=== PATIENT | female | born 1945 | race African-American/Black ===

== ENCOUNTER 2018-05-24 11:47 | Emergency (ER) | payer SELFPAY ==
[~2018-05-24] VITALS: Ht 157.5 cm; Wt 79.4 kg
[2018-05-24 14:44] VITALS: BP 130/57
[2018-05-24] MEDS ORDERED: HYDROcodone-ACET 5/325MG TAB PO ONE (15:00)
== END 2018-05-24 15:15 | disposition home or self-care (01) ==
LOC: ER 11:47
DX: S40.011A Contusion of right shoulder, initial encounter (principal); E78.5 Hyperlipidemia, unspecified; I10 Essential (primary) hypertension; W19.XXXA Unspecified fall, initial encounter; Y93.89 Activity, other specified; Y99.8 Other external cause status; Y92.89 Other specified places as the place of occurrence of the external cause
CPT/HCPCS: 73030

== ENCOUNTER 2018-09-14 21:24 | Emergency (ER) | payer OTHER ==
[~2018-09-14] VITALS: Ht 157.5 cm; Wt 79.5 kg
[2018-09-14 21:55] LABS: Basophils # (auto) 0.1 uL; Basophils % (auto) 0.6 % (0.0-2.0); Eosinophils # (auto) 0.4 uL; Hematocrit 43.8 % (36.0-46.0); Hemoglobin 14.7 g/dL (12.2-16.2); Lymphocytes % (auto) 31.3 % (10.0-50.0); Mean Corpuscular Hemoglobin 31.4 pg (28.0-32.0); Mean Corpuscular Hgb Conc. 33.7 g/dL (32.0-36.0); Mean Corpuscular Volume 93.3 fL (80.0-100.0); Monocytes # (auto) 0.6 uL; Monocytes % (auto) 5.8 % (0.0-12.0); Neutrophils # (auto) 5.5 uL; Neutrophils % (auto) 58.3 % (37.0-80.0); Nucleated Red Blood Cells % 0.1 %; Platelet Count (auto) 270 10^3/uL (140-450); Red Cell Distribution Width 14.7 % (11.8-14.3); White Blood Cell 9.5 10^3/uL (4.4-10.8)
[2018-09-14 22:12] LABS: Alanine Aminotransferase 27 U/L (13-56); Albumin 4.3 g/dL (3.4-5.0); Anion Gap 9 (5-15); Aspartate Aminotransferase 20 U/L (15-37); BUN/Creatinine Ratio 12.9; Blood Urea Nitrogen 13 mg/dL (7-18); Calcium 9.3 mg/dL (8.5-10.1); Carbon Dioxide 24 mmol/L (21-32); Chloride 109 mmol/L (98-107); GFR African American 69 mL/min; GFR Non-African American 57 mL/min; Glucose 87 mg/dL (74-106); Potassium 4.3 mmol/L (3.5-5.1); Sodium 142 mmol/L (136-145)
[2018-09-14 22:16] LABS: Alkaline Phosphatase 98 U/L (45-117); Bilirubin, Total 0.4 mg/dL (0.2-1.0); Total Protein 8.2 g/dL (6.4-8.2)
[2018-09-14 22:48] VITALS: BP 137/78
== END 2018-09-14 23:15 | disposition home or self-care (01) ==
LOC: ER 21:24
DX: I10 Essential (primary) hypertension (principal); M19.90 Unspecified osteoarthritis, unspecified site; E78.5 Hyperlipidemia, unspecified
CPT/HCPCS: 36415; 71045; 80053; 83880; 84484; 85025; 93005

== ENCOUNTER 2021-08-19 13:17 | Emergency (ER) | payer OTHER ==
[~2021-08-19] VITALS: Ht 157.5 cm; Wt 76.7 kg
[2021-08-19 13:34] VITALS: BP 118/61
[2021-08-19] MEDS ORDERED: ALBUTEROL SULF 2.5 MG/0.5ML(0.5%) NEB SOLN HHN ONE (14:00)
[2021-08-19] MEDS ORDERED: IPRATROPIUM BROM 0.5 MG/2.5ML INH SOL HHN ONE (14:00)
[2021-08-19] MEDS ORDERED: methylPREDNISolone SOD SUCC 125 MG/2 ML VL IV ONE (14:00)
[2021-08-19 16:16] LABS: Basophils # (auto) 0.1 10 ^3/uL (0-0.2); Basophils % (auto) 0.7 % (0.0-2.0); Eosinophils # (auto) 0 10 ^3/uL (0-0.8); Eosinophils % (auto) 0.2 % (0.0-7.0); Hematocrit 40.2 % (36.0-46.0); Hemoglobin 13.7 g/dL (12.2-16.2); Lymphocytes # (auto) 3.2 10 ^3/uL (0.4-5.4); Lymphocytes % (auto) 15.7 % (10.0-50.0); Mean Corpuscular Hemoglobin 31.5 pg (28.0-32.0); Mean Corpuscular Volume 92.6 fL (80.0-100.0); Monocytes # (auto) 0.5 10 ^3/uL (0-1.3); Monocytes % (auto) 2.3 % (0.0-12.0); Neutrophils # (auto) 16.2 10 ^3/uL (1.6-8.6); Neutrophils % (auto) 81.1 % (37.0-80.0); Red Blood Cells 4.34 10^6/uL (4.0-5.20); Red Cell Distribution Width 13.6 % (11.8-14.3)
[2021-08-19 16:40] LABS: Albumin 3.9 g/dL (3.4-5.0); Calcium 9.5 mg/dL (8.5-10.1); Potassium 4.3 mmol/L (3.5-5.1)
[2021-08-19 16:43] LABS: BUN/Creatinine Ratio 19.1
[2021-08-19 16:46] LABS: Bilirubin, Total 0.2 mg/dL (0.2-1.0)
[2021-08-19] MEDS ORDERED: METH4PAK PO (17:22)
[2021-08-19] MEDS ORDERED: AZIT1POW PO (17:22)
== END 2021-08-19 17:35 | disposition home or self-care (01) ==
LOC: ER 13:17
DX: J44.1 Chronic obstructive pulmonary disease with (acute) exacerbation (principal); J20.9 Acute bronchitis, unspecified; I10 Essential (primary) hypertension; E78.5 Hyperlipidemia, unspecified
CPT/HCPCS: 36415; 71046; 80053; 83880; 84484; 85025; 93005; 94640; 99285; J7644